=== PATIENT | male | born 1950 | race Caucasian/White ===

== ENCOUNTER 2021-12-24 10:31 | Observation (INO) ==
--- NOTE | 2021-11-16 13:45 | PAT Medication Instructions ---
Medication Instructions Date of Service November 16, 2021 Home Medications rosuvastatin 20 mg tablet 20 mg PO HS sildenafil 20 mg tablet (Revatio) 40 mg PO UD PRN tamsulosin 0.4 mg capsule (Flomax) 0.4 mg PO DAILY venlafaxine 75 mg capsule,extended release 24 hr (Effexor XR) 75 mg PO QAM lisinopril 10 mg-hydrochlorothiazide 12.5 mg tablet 1 tab PO QAM STOP taking 24 hours before surgery sildenafil 20 mg tablet (Revatio) 40 mg PO UD PRN DO NOT take the morning of surgery lisinopril 10 mg-hydrochlorothiazide 12.5 mg tablet 1 tab PO QAM Take morning of surgery With a small sip of water, OTHERWISE NOTHING TO EAT OR DRINK AFTER MIDNIGHT: tamsulosin 0.4 mg capsule (Flomax) 0.4 mg PO DAILY venlafaxine 75 mg capsule,extended release 24 hr (Effexor XR) 75 mg PO QAM Take evening before surgery rosuvastatin 20 mg tablet 20 mg PO HS Other Notes If you have any questions please call us at [phone] or [phone] or [phone] or [phone]
--- NOTE | 2021-11-17 13:53 | Anesthesiology Consultation ---
Date of Service November 17, 2021 Assessment & Plan (1) Encounter for pre-operative examination: Chart Review Chart Review: Acceptable Risk for Surgery (pending preop Covid testing results ) and Patient seen in Pre Admission Testing Upon review of chart- patient is an acceptable candidate for [facility] from anesthesia perspective. Patient is motivated, has good support; pending surgeon's office completes [facility] preop requirements- patient may proceed with outpatient TSA. Per PAT appt on 11/17/21, patient denies any recent travel or large group activities. No known Covid positive exposures or Covid related symptoms. No known Covid infection in the past 90 days. Pt is fully vaccinated for Covid. Preop Covid testing will be done 2-4 days prior to surgery = will await results. Educated on importance of self quarantining, social distancing and wearing mask in public for the patient one week prior to surgery and after Covid testing done Teaching & Discussion Pre-Anesthesia Teaching/Discussion Notes: Instructed NPO after midnight before surgery,except medications with 15 cc of water. Medication instructions provided according to the PAT guidelines. History Surgery Operation Date: 12/24/21 07:00 Proposed Procedures p Left Reverse Total Shoulder Arthroplasty versus - Pablo Madsen DO s Total Shoulder Arthroplasty - Pablo Madsen DO Height/Weight Height: 5 ft 6 in Weight: 77.7 kg Allergies Allergy/AdvReac Type Severity Reaction Status Date / Time No Known Allergies Allergy Verified 11/16/21 11:27 Medications Home Medications Medication Instructions Recorded Confirmed Last Taken rosuvastatin 20 mg tablet 20 mg PO HS 03/16/21 11/16/21 Unknown sildenafil (pulm.hypertension) 20 40 mg PO PRN tab 03/16/21 03/16/21 Unknown mg tablet (Revatio) tamsulosin 0.4 mg capsule (Flomax) 0.4 mg PO DAILY 03/16/21 11/16/21 Unknown venlafaxine 75 mg capsule,extended 75 mg PO QAM 03/16/21 11/16/21 Unknown release 24 hr (Effexor XR) lisinopril 10 1 tab PO QAM 11/16/21 11/16/21 Unknown mg-hydrochlorothiazide 12.5 mg tablet Past Medical History Medical History Anxiety and depression Arthritis HTN (hypertension) Hyperlipidemia Exercise / Class Metabolic Activity II 4-5 Yardwork/Stairs/Walk up hill (one flight of stairs - no chest pain or SOB ) Past Family History Family History Other No family history of adverse response to anesthesia Past Surgical History Surgical History History of carpal tunnel release RT History of colonoscopy History of tooth extraction History of total hip arthroplasty RT S/P carpal tunnel release Past Anesthesia History No Hx of Anesthesia Complications and No Family Hx of Anesthesia Complications History of PONV No Hx of PONV and No Hx of Motion Sickness Social History Smoking Status: Never smoker Hx Alcohol Use: Yes Alcohol type: wine alcohol intake frequency: a few times a month substance use type: does not use Review of Systems Patient denies chest pain, shortness of breath, dyspnea on exertion, reflux, cough, wheezing, palpitations. No hx of seizures, stroke, CT, apnea/snoring. No hx of blood clots or blood transfusions Physical Exam Vital Signs VITALS BP 102/68 P 89 TEMP 97.9 SP02 98% RESP 16 Constitutional no acute distress ENMT Mouth: no TMJ clicking Thyromental Distance: > or= 3.5 Finger Breadths (3.5) Mallampati Class: II Missing molars Neck neck extension not limited Respiratory normal respiratory effort; no respiratory distress Auscultation: lungs clear to auscultation bilaterally; no wheezes Cardiovascular Rate/Rhythm: regular rate and regular rhythm Heart Sounds: no murmur Vessels: no carotid bruit Musculoskeletal Spine: no pain with cervical ROM Extremities: extremities normal to inspection Psychiatric Orientation: alert Lab Results Anesthesia Preop Results Results Anesthesia Widget: WBC 5.10 K/uL (4.8-10.8) 11/17/21 Hgb 13.8 g/dL (14.0-18.0) L 11/17/21 Hct 40.3 % (42-52) L 11/17/21 Plt 239 K/uL (130-400) 11/17/21 Na 139 mmol/L (136-145) 11/17/21 K 3.7 mmol/L (3.5-5.1) 11/17/21 Cl 104 mmol/L (98-107) 11/17/21 CO2 29 mmol/L (21-32) 11/17/21 BUN 24 mg/dl (6-23) H 11/17/21 Creat 0.99 mg/dl (0.6-1.4) 11/17/21 Glucose Level 121 mg/dl (70-99(Fasting)) H 11/17/21 PT 10.5 Seconds (9.0-12.0) 11/17/21 PTT 26.8 Seconds (21.0-31.0) 11/17/21 INR 1.0 (0.9-1.1) 11/17/21 Blood Type A Negative 11/17/21 Antibody Screen NEGATIVE 11/17/21 Testing Electrocardiogram Date: 11/17/21 Sinus rhythm with premature supraventricular complexes at 84bpm. Left anterior fascicular block. Other Testing Chest CT 05/04/2021 = no evidence of sclerosis or lesion of the ribs. No evidence of soft tissue mass. No focal consolidation or pleural effusion. Subsegmental atelectasis versus scarring at the lung bases.
--- NOTE | 2021-12-23 14:41 | History & Physical Report ---
Date of Service December 23, 2021 Assessment & Plan (1) Primary osteoarthritis, left shoulder: We will proceed with a left total shoulder arthroplasty. Postoperatively he will be placed in a sling and discharged home on oral pain medications. He plans to go to outpatient physical therapy upon discharge. History of Present Illness Chief Complaint: Osteoarthritis of the left shoulder. Primary Care Provider: Unknown Unknown Foreign is a pleasant 71-year-old male who is been dealing with chronic worsening osteoarthritis of the left shoulder. I been treating with serial injections. MRI from 2019 shows an intact rotator cuff and severe osteoarthritis After failing years conservative treatment, he has elected to proceed with a left total shoulder arthroplasty. Allergies Allergy/AdvReac Type Severity Reaction Status Date / Time No Known Allergies Allergy Verified 11/16/21 11:27 Home Medications Medication Instructions Recorded Confirmed Type rosuvastatin 20 mg tablet 20 mg PO HS 03/16/21 11/16/21 History sildenafil (pulm.hypertension) 20 40 mg PO PRN tab 03/16/21 03/16/21 History mg tablet (Revatio) tamsulosin 0.4 mg capsule (Flomax) 0.4 mg PO DAILY 03/16/21 11/16/21 History venlafaxine 75 mg capsule,extended 75 mg PO QAM 03/16/21 11/16/21 History release 24 hr (Effexor XR) lisinopril 10 1 tab PO QAM 11/16/21 11/16/21 History mg-hydrochlorothiazide 12.5 mg tablet Past Med/Surg History Medical History Anxiety and depression Arthritis HTN (hypertension) Hyperlipidemia Surgical History History of carpal tunnel release RT History of colonoscopy History of tooth extraction History of total hip arthroplasty RT S/P carpal tunnel release Family History Other No family history of adverse response to anesthesia Social History Smoking Status: Never smoker Second Hand Exposure: No; Hx Alcohol Use: Yes Alcohol type: wine Preferred Language: Latvian Communication Ability: Effective 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 Physical Exam On physical examination, he has about 90 degrees forward elevation 90 degrees of abduction. He does have pain and crepitus throughout. He has 5 out of 5 motor strength throughout. Constitutional WD/WN, vitals as above Eyes PERRL, conjunctivae normal, anicteric sclerae ENMT external ear and nose normal, oropharynx normal Neck trachea midline, no thyromegaly Respiratory normal respiratory effort Cardiovascular RRR, no murmur, no edema Gastrointestinal (Abdomen) normal bowel sounds, soft, nontender, no hepatosplenomegaly Psychiatric A+Ox3, euthymic affect Results & Data Results & Data Laboratory Results . Diagnostic Findings X-rays of the left shoulder do show advanced osteoarthritis with joint space narrowing, osteophyte formation, and xase-cd-dhib articulation. PG Care Time/CCT Total # of Minutes Spent Total Time Spent with Patient: Total time spent is greater than 50% in coordination of care (as documented) at patient's floor/unit and/or counseling patient: Coding Level of Care Code None Diagnoses Primary osteoarthritis, left shoulder M19.012
--- NOTE | 2021-12-24 10:17 | History & Physical Bridge Note ---
Date of Service December 24, 2021 History & Physical Bridge Note I have examined the patient, reviewed the History & Physical and in the interval since the performance of the History & Physical I have noted the following changes of clinical significance: no changes noted
[~2021-12-24 10:31] MED LIST: ACETAMINOPHEN 500 MG TAB PO SCH; ATROPINE SULFATE 0.1 MG/ML 10ML SYR IV PRN; BUPIVACAINE 0.5 % 5 MG/1 ML PF 10ML VIAL ONE; FAMOTIDINE 20 MG TAB PO SCH; GABAPENTIN 300 MG CAP PO SCH; Ketorolac (*for OR use only*) 30 MG, dexAMETHasone 4 MG, KETAMINE HCL (**OR use only) 1... INFIL SCH; LIDOCAINE 2% 2 ML VIAL/AMP(20MG/ML) INFIL ONE; LR 15ML/HR IV SCH; LR 60ML/HR IV SCH; MIDAZOLAM HCL 1 MG/ML 2ML VIAL ONE; ONDANSETRON INJ 2 MG/ML 2 ML VIAL IV PRN; ONDANSETRON INJ 2 MG/ML 2 ML VIAL ONE; PROPOFOL IV EMULSION 10 MG/ML 20 ML VIAL IV ONE; TRANEXAMIC ACID 1,000 MG **IV Intra-op IV SCH; TRANEXAMIC ACID 1,000 MG **IV Pre-op IV SCH; ceFAZolin 2000MG 2,000 MG/15 ML SYR IV SCH; dexAMETHasone 4 MG TAB PO SCH; fentaNYL citrate 100 MCG/2 ML VIAL IV PRN; fentaNYL citrate 100 MCG/2 ML VIAL ONE
[2021-12-24] MEDS ORDERED: ORTHO JOINT ANESTHETIC ONE (10:40)
[2021-12-24] MEDS ORDERED: ROCURONIUM BROMIDE 10 MG/ML 5 ML VIAL IV ONE (11:45)
[2021-12-24] MEDS ORDERED: DEXAMETHASONE SOD INJ 4 MG/ML VIAL ONE (11:45)
[2021-12-24] MEDS ORDERED: oxyCODONE/ACETAMINOPHEN 5mg/325mg TAB PO PRN (12:44)
--- NOTE | 2021-12-24 12:44 | Operative Report ---
PG Post Operative Report Pre & Post Diagnosis Operation Date: 12/24/21 12:00 Pre-Op Diagnosis: Degenerative Joint Disease Left Shoulder with tendinopathy of the long head of the biceps tendon Post-Op Diagnosis: Degenerative Joint Disease Left Shoulder with tendinopathy of the long head of the biceps tendon I identified the patient and participated in the time-out.: Yes Procedure Operation Date: 12/24/21 12:00 Actual Procedures p Left Reverse Total Shoulder Arthroplasty, Uncemented(Left) with open biceps tenodesis as a distinct and separate procedure (modifier 59)- Pablo Madsen DO Surgeon Pablo Madsen DO Digital Forensics Investigator Pablo Walters PAC Estimated Blood Loss 150 Findings Consistent with Post-Op Diagnosis Specimens Left humeral head Complications none Disposition Disposition: Recovery Room Indications Foreign is a pleasant 71-year-old male who is been dealing with chronic increasing left shoulder pain. X-rays and clinical examination were diagnostic for advanced arthritis of the left shoulder. After failing conservative treatment, he elected proceed with a shoulder replacement surgery. Description of Procedure A CPT code modifier 59: The long head of the biceps tendon was enlarged and inflamed consistent with tendinopathy. A tenodesis was opted. This was a separate and distinct portion of the procedure. For these reasons, a CPT code modifier 59 will be added to this case. Implants used: I used a [employer] Comprehensive reverse total shoulder arthroplasty system with a size 11 press fit micro humeral stem, a standard humeral tray and a standard humeral bearing, a 25 mm large augment baseplate with a 6.5 mm central screw and superior and inferior locking screws, and a size 40 mm eccentric glenosphere. Foreign arrived at [facility] for the above procedure. He was seen in the preoperative holding area and the operative extremity was identified and signed. He was given a preoperative antibiotic, TXA, and an interscalene nerve block. He was taken back to the operating room, laid on table in supine position, and put under general anesthesia. He was then put into the beachchair position. The shoulder was then prepped and draped in sterile fashion. A timeout was done and the patient and the operative extremity was properly identified. A deltopectoral approach was used. Dissection was taken down through the fascia and the deltoid was retracted laterally and the conjoined tendon was retracted medially. The anterior shoulder was exposed. The biceps groove was opened up and the biceps tendon was examined extensively. The biceps tendon demonstrated enlargement and inflammatory changes consistent with longstanding inflammation in the context of osteoarthritis and cuff arthropathy. The long head of the biceps tendon was then tenodesed to the upper border of the pectoralis major. This was a separate and distinct portion of the procedure. The subscapularis was then directly released off the lesser tuberosity with a peel technique. The inferior capsule was released and the humeral head was dislocated. A canal finding reamer was sent down the center of the humeral canal. Sequential reaming up to a size 11 reamer was done. Off that reamer, a proximal humeral resection guide was placed. The proximal humerus was resected at 135 of inclination and 25 of retroversion. Osteophytes were then removed and the glenoid was exposed. Time was spent doing a complete capsular and labral release. A [employer] Signature One guide was then attached onto the anterior rim of the glenoid. A 3.2 mm Steinmann pin was then placed in the reverse total shoulder arthroplasty hole. The glenoid baseplate was then reamed. The final size 25 mm large augment baseplate was then impacted in the place. A 6.5 mm central screw was then placed followed by superior and inferior locking screws. A 40 mm eccentric glenosphere was then impacted into place. Surrounding soft tissues were then injected with 100 cc an orthopedic pain control cocktail. The proximal humerus was then exposed. Sequential broaching of the humerus up to a size 11 broach was done. Off that broach a standard humeral tray was trialed. The shoulder was then reduced, brought through a full range of motion, and felt to be stable. The shoulder was then dislocated and the broach was removed. The final size 11 micro press-fit humeral stem was then impacted into place. A standard humeral bearing was then snapped onto a standard humeral tray. The humeral tray was then impacted onto the humeral stem. The shoulder was once again reduced, brought through a full range of motion, and felt to be stable. The subscapularis was then tenodesed back to the lesser tuberosity with transosseous FiberWire sutures and side to side sutures with the arm in 45 of external rotation. A dilute betadyne lavage was then done for 3 minutes. The joint was then irrigated with normal saline solution. Hemostasis was obtained. The interval was closed with 2-0 Vicryl suture. The skin was then closed with 2-0 Vicryl and maverick. A Silverlon dressing was placed and the arm was rested in a regular arm sling. He was then extubated and transferred to a hospital bed. He taken to the postanesthesia care unit in stable condition. He tolerated the procedure well. Pablo Walters PA-C, was present for the entire procedure. He was critical for bharat ent positioning, prepping, draping, retraction exposure, wound closure and application of sterile dressing. I attest to the content of the Intraoperative Record and any orders documented therein. Any exceptions are noted below.
--- NOTE | 2021-12-24 13:15 | XRay Report ---
XR shoulder LT min 2V routine CLINICAL HISTORY: Post shoulder surgery. Status post total shoulder replacement COMPARISON STUDY: No previous studies for comparison. TECHNIQUE: 2 left shoulder views FINDINGS: The patient is status post total shoulder replacement with humeral head and glenoid compone nts. The prosthetic components are in anatomic alignment with no acute abnormality identified. IMPRESSION: 1. Status post total shoulder replacement. ACT 112: Negative or not required by law. Electronically signed by: Wil Constantino M.D. 12/24/2021 1:14 PM
[2021-12-24] MEDS ORDERED: PHENYLEPHRINE 100MCG/ML 5ML SYR ONE (13:27)
[2021-12-24] MEDS: ePHEDrine sulfate 50 MG/ML AMP IV PRN ×3 (13:54→14:06)
[2021-12-24] MEDS ORDERED: ALBUMIN HUMAN 5% 12.5 GM/250 ML VIAL IV ONE (14:20)
[2021-12-24] MEDS ORDERED: VASOPRESSIN 20 UNIT/ML VIAL ONE (14:20)
--- NOTE | 2021-12-24 15:43 | Anesthesiology Progress Note ---
Date of Service December 24, 2021 Anesthesia Post Procedure Vital Signs Vital Signs: Temp Pulse Pulse Resp BP Pulse Ox 12/24/21 15:30 88 14 98/60 L 94 12/24/21 15:20 82 13 106/65 95 12/24/21 15:10 88 17 106/63 97 12/24/21 15:00 36.2 C L 82 14 97/60 L 95 12/24/21 14:50 86 14 92/57 L 96 12/24/21 14:45 89 13 98/67 L 98 12/24/21 14:40 86 12 90/55 L 97 12/24/21 14:35 87 12 87/53 L 97 12/24/21 14:30 85 14 86/52 L 98 12/24/21 14:25 82 12 110/74 97 12/24/21 14:20 79 19 78/54 L 97 12/24/21 14:10 82 15 85/53 L 97 12/24/21 14:00 77 20 85/53 L 93 12/24/21 13:50 78 16 86/56 L 96 12/24/21 13:40 81 13 85/51 L 96 12/24/21 13:30 82 17 89/51 L 99 12/24/21 13:20 68 16 76/46 L 97 12/24/21 13:10 83 13 114/76 98 12/24/21 13:03 36.1 C L 84 12 128/96 95 12/24/21 10:48 36.9 C 96 H 18 134/98 99 Transfer of Care Handoff Completed per policy Notes Mental Status: alert / awake / arousable and participated in evaluation Patient Amnestic to Procedure: Yes Nausea / Vomiting: adequately controlled Pain: adequately controlled Airway Patency, RR, SpO2: stable & adequate BP & HR: see Notes below Hydration State: stable & adequate Anesthetic Complications: no major complications apparent and Pt Satisfied with anesthetic care Notes: Patient had mild hypotension intraoperatively that was treated with vasoactive medications. In recovery, he again had decreased BP with SBP's in 80's despite fluid bolus and remaining supine. Denied any chest pain/pressure, SOB, dizziness, vision changes, pain, N/V. He was awake and conversant. Moved all extremities. HR 80's, NSR. SpO2 mid to high 90's in minimal supplemental oxygen via NC. Along with LR bolus, had PACU nurse administer several doses of ephedrine with minimal change in BP. Ordered 250ml 5% albumin and I personally gave a total of 8 units of vasopressin over 20 min with BP's responding to high 90's and then low 100's although patient still supine. After discussion with patient and his (via cell), felt it was best to suggest he be admitted overnight for observation so that his BP could correct and minimize chance of him getting up and having a fall. Of note, patient took his morning dose of HCTZ/lisinopril and I felt his hypotension was likely lisinopril induced. Patient agreed with plan and surgical team made aware. Plan was for them to admit patient overnight and discharge tomorrow once his blood pressure had normalized and he was further out from the general anesthetic. All questions answered.
[2021-12-24] MEDS ORDERED: oxyCODONE HCL IR 5 MG TAB (IMMEDIATE RELEASE) PO PRN (16:17)
[2021-12-24] MEDS ORDERED: METOCLOPRAMIDE HCL INJ 5 MG/ML 2 ML VIAL IV PRN (16:17)
[2021-12-24] MEDS ORDERED: ONDANSETRON INJ 2 MG/ML 2 ML VIAL IV PRN (16:17)
[2021-12-24] MEDS ORDERED: HYDROmorphone INJ 0.5 MG/0.5 ML SYR IV PRN (16:17)
[2021-12-24] MEDS: SODIUM CHLORIDE 0.9% 1000ML 1,000 ML IV SCH (16:17)
[2021-12-24] MEDS ORDERED: bisacodyL 10 MG SUPP PR PRN (16:17)
[2021-12-24] MEDS ORDERED: MAGNESIUM HYDROXIDE SUSP 30 ML UDC PO PRN (16:17)
[2021-12-24] MEDS ORDERED: NALOXONE HCL 0.4 MG/1 ML VIAL/CARP IV PRN (16:17)
--- NOTE | 2021-12-24 16:44 | Hospitalist Consultation ---
Date of Consultation December 24, 2021 Assessment & Plan (1) Hypotension: Patient has postoperative hypotension was asymptomatic at this time. He is ordered saline at 100 an hour. The patient has no systemic complaints or problems such as chest pain shortness of breath. There is no obvious signs of excessive bleeding For patient's hypertension we will hold the lisinopril hydrochlorothiazide in the postoperative period restarting this on 12/26/2021 if the patient still remains in the hospital. and we will hold off on his Flomax therapy at this time also.. When checking hemoglobin in the morning in case his potential and is from hypovolemia from blood loss (2) Status post reverse total replacement of left shoulder: Patient had a satisfactory versus reverse shoulder replacement by Dr. Madsen in December 24 (3) Anxiety and depression: Patient maintains his Effexor 75 twice daily History of Present Illness Attending Physician: Pablo Madsen DO History of Present Illness 71-year-old male who had a left reverse total total shoulder arthroplasty on 12/24/[address] Madsen patient has medical problems including hypertension dyslipidemia depression and BPH. He takes lisinopril hydrochlorothiazide Crestor Effexor and Flomax respectively. We are consulted for postoperative medical management Allergies Allergy/AdvReac Type Severity Reaction Status Date / Time No Known Allergies Allergy Verified 12/24/21 10:45 Home Medications Medication Instructions Recorded Confirmed Type rosuvastatin 20 mg tablet 20 mg PO HS 03/16/21 12/24/21 History sildenafil (pulm.hypertension) 20 40 mg PO PRN tab 03/16/21 03/16/21 History mg tablet (Revatio) tamsulosin 0.4 mg capsule (Flomax) 0.4 mg PO DAILY 03/16/21 12/24/21 History venlafaxine 75 mg capsule,extended 75 mg PO QAM 03/16/21 12/24/21 History release 24 hr (Effexor XR) lisinopril 10 1 tab PO QAM 11/16/21 12/24/21 History mg-hydrochlorothiazide 12.5 mg tablet oxycodone-acetaminophen 5 mg-325 1 tab PO Q6H PRN #30 tab 12/24/21 Rx mg tablet Patient History Medical History (Updated 12/24/21 @ 17:11 by Nemesio Ohara MD) Anxiety and depression Arthritis HTN (hypertension) Hyperlipidemia Surgical History (Updated 12/24/21 @ 11:18 by Pablo Madsen DO) History of carpal tunnel release RT History of colonoscopy History of tooth extraction History of total hip arthroplasty RT S/P carpal tunnel release Family History Other No family history of adverse response to anesthesia Social History Smoking Status: Never smoker Second Hand Exposure: No; Hx Alcohol Use: Yes Alcohol type: wine Preferred Language: Azeri Communication Ability: Effective Tallow Maker Required: No Beliefs That Will Affect Care: None marital status: Current Living Situation: Spouse Feels Safe at Home: Yes Safety Concerns: Feels Safe At This Time Assistive Devices: Glasses Review of Systems Review of Systems: Mild distress and fatigue no headache, no visual changes no speech or swallowing issues no chest pain, pressure or palpitations no shortness of breath, cough or wheezes no abdominal pain, nausea or vomiting, diarrhea or constipation no dysuria, hematuria or frequency no focal joint pain or swelling no back pain, CVA tenderness or radicular pain no bruising, bleeding or rashes no focal signs of weakness is of altered sensation has remnant of his nerve block on his left hand and however is easily movable and he can AB duct his thumb no complaints of anxiety or depression.. Physical Exam Physical Exam: The patient appeared well nourished and normally developed. His pain was well controlled Vital signs as documented. Head exam is normocephalic atraumatic Neck is without JVD, thyromegaly, or carotid bruits. Lungs are clear to auscultation, no focal loss of breath sounds Cardiac exam, Rhythm is regular.. No murmurs, rubs or gallops. Abdominal exam reveals normal bowel sounds, soft non tender, no masses Left shoulder has a sling in place the wound is dressed ice bag is in place Neurologic exam is alert and oriented, no focal loss of strength is of some residual numbness from axillary nerve block Skin is without bruises or rashes but the operative site could not be visualized due to dressing in place Psychologically is without concerns for anxiety or depression.. Results & Data Results & Data ([facility]) Vital Signs (Past 12 Hours) Vital Signs Temp Pulse Pulse Resp BP Pulse Ox 12/24/21 16:27 98.1 F 105 H 20 105/94 94 12/24/21 16:00 98 H 13 94/55 L 94 12/24/21 15:50 97 H 14 97/63 L 95 12/24/21 15:40 89 18 92/58 L 95 12/24/21 15:30 88 14 98/60 L 94 12/24/21 15:20 82 13 106/65 95 12/24/21 15:10 88 17 106/63 97 12/24/21 15:00 97.2 F L 82 14 97/60 L 95 12/24/21 14:50 86 14 92/57 L 96 12/24/21 14:45 89 13 98/67 L 98 12/24/21 14:40 86 12 90/55 L 97 12/24/21 14:35 87 12 87/53 L 97 12/24/21 14:30 85 14 86/52 L 98 12/24/21 14:25 82 12 110/74 97 12/24/21 14:20 79 19 78/54 L 97 12/24/21 14:10 82 15 85/53 L 97 12/24/21 14:00 77 20 85/53 L 93 12/24/21 13:50 78 16 86/56 L 96 12/24/21 13:40 81 13 85/51 L 96 12/24/21 13:30 82 17 89/51 L 99 12/24/21 13:20 68 16 76/46 L 97 12/24/21 13:10 83 13 114/76 98 12/24/21 13:03 97.0 F L 84 12 128/96 95 12/24/21 10:48 98.4 F 96 H 18 134/98 99 Diagnostic Findings Shoulder X-Ray 12/24/21 12:44 XR shoulder LT min 2V routine CLINICAL HISTORY: Post shoulder surgery. Status post total shoulder replacement COMPARISON STUDY: No previous studies for comparison. TECHNIQUE: 2 left shoulder views FINDINGS: The patient is status post total shoulder replacement with humeral head and glenoid components. The prosthetic components are in anatomic alignment with no acute abnormality identified. IMPRESSION: 1. Status post total shoulder replacement. ACT 112: Negative or not required by law. Electronically signed by: Wil Constantino M.D. 12/24/2021 1:14 PM PG Care Time/CCT Total # of Minutes Spent Total Time Spent with Patient: Total time spent is greater than 50% in coordination of care (as documented) at patient's floor/unit and/or counseling patient: Coding Level of Care Code 51564 Inpt Consult Level 3 Diagnoses Status post reverse total replacement of left shoulder Z96.612 Anxiety and depression F41.9; F32.A Hypotension I95.9
[2021-12-24] MEDS: KETOROLAC TROMETHAMINE 15 MG/ML VIAL IV SCH ×2 (18:08→23:56)
[2021-12-24] MEDS: ceFAZolin 2000MG 2,000 MG/15 ML SYR IV SCH (20:58)
[2021-12-24] MEDS ORDERED: SENNA 8.6 MG TAB PO SCH (21:00)
[2021-12-24] MEDS: ACETAMINOPHEN 500 MG TAB PO SCH (21:00)
[2021-12-24] MEDS ORDERED: ROSUVASTATIN CALCIUM 20 MG TAB PO SCH (21:00)
[2021-12-24] MEDS: ASPIRIN 81 MG ECTAB PO SCH (21:01)
[2021-12-24] MEDS: DOCUSATE SODIUM 100 MG CAP PO SCH (21:01)
[2021-12-25] MEDS: SODIUM CHLORIDE 0.9% 1000ML 1,000 ML IV SCH (03:09)
[2021-12-25] MEDS: ceFAZolin 2000MG 2,000 MG/15 ML SYR IV SCH (05:37)
[2021-12-25] MEDS: ACETAMINOPHEN 500 MG TAB PO SCH (05:37)
[2021-12-25] MEDS: KETOROLAC TROMETHAMINE 15 MG/ML VIAL IV SCH (05:38)
[2021-12-25 06:27] LABS: Hematocrit (blood only) 34.4 % (42-52); Hemoglobin 11.6 g/dL (14.0-18.0); Mean Corpuscular Hgb Conc 33.7 g/dL (32-36); Mean Corpuscular Volume 94.8 fL (80-100); Mean Platelet Volume 9.8 fL (7.4-10.4); Platelet Count 208 K/uL (130-400); RDW Coefficient of Variation 12.9 % (11.5-14.5); RDW Standard Deviation 44.8 fL (36.4-46.3); Red Blood Count 3.63 M/uL (4.7-6.1); White Blood Count 12.83 K/uL (4.8-10.8)
[2021-12-25 06:49] LABS: BUN Creatinine Ratio 19.7 (10-20); Calcium 8.1 mg/dl (8.5-10.1); Creatinine Clr Calc Pharmacy 52.3 ml/min; Est GFR (African American) 72.3 ml/min; Est GFR (Non-African American) 62.4 ml/min; Potassium 3.8 mmol/L (3.5-5.1)
--- NOTE | 2021-12-25 07:10 | Orthopedic Progress Note ---
Date of Service December 25, 2021 Assessment & Plan (1) Status post reverse total replacement of left shoulder: Overall is doing very well. He does not seem to be symptomatic with the hypotension. His blood pressure is still running a little bit low but it is higher than it was postoperatively. We have held his lisinopril. He will be seen by physical therapy today for ambulation and range of motion exercises. If he does well with physical therapy, and he is asymptomatic, he can be discharged home. I do want him to hold his lisinopril for the next 3 days. He will follow-up with orthopedics in 2 weeks. Jessica Carrasquillo was seen and examined at bedside this morning. Overall is doing fairly well. He was admitted last night for postoperative hypotension. He says he feels fine. He has been up and using the bathroom. He has no complaints. Review of Systems All systems reviewed & are unremarkable except as noted in HPI & below. Physical Exam On physical examination of the left shoulder, the dressing is clean and dry. His radial, median, and ulnar nerves are checked intact at his wrist. He still is a little bit of numbness in his thumb. He is wearing his sling as instructed. . Results & Data Results & Data Laboratory Results . Diagnostic Findings Postoperative x-rays of the left shoulder show the prosthesis to be in anatomic alignment without any evidence of fracture, desiccation, or loosening . PG Care Time/CCT Total # of Minutes Spent Total Time Spent with Patient: Total time spent is greater than 50% in coordination of care (as documented) at patient's floor/unit and/or counseling patient: Coding Level of Care Code 13964 Post Operative Follow-Up Diagnoses Status post reverse total replacement of left shoulder Z96.612
--- NOTE | 2021-12-25 07:11 | Discharge Summary ---
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 I been treating with serial injections. MRI from 2019 shows an intact rotator cuff and severe osteoarthritis After failing years conservative treatment, he has elected to proceed with a left total shoulder arthroplasty. Admission Exam (Per Admitting) On physical examination, he has about 90 degrees forward elevation 90 degrees of abduction. He does have pain and crepitus throughout. He has 5 out of 5 motor strength throughout. Principal Diagnosis Same as "Discharge Diagnosis" noted below under Discharge Instructions. Discharge Exam On physical examination of the left shoulder, the dressing is clean and dry. His radial, median, and ulnar nerves are checked intact at his wrist. He still is a little bit of numbness in his thumb. He is wearing his sling as instructed . . Discharge Data Consultations 12/24/21 16:17 Consult Hospitalist Routine Procedures Performed Operation Date: 12/24/21 12:00 Actual Procedures p Left Reverse Total Shoulder Arthroplasty, Uncemented(Left) - Pablo Madsen DO Ordered Studies 12/24/21 05:00 US - OR guided needle placemen Routine Hospital Course (1) Status post reverse total replacement of left shoulder: On December 24, 2021 Foreign arrived at [facility] and underwent a left reverse shoulder arthroplasty without complication. He had a general anesthetic and a left interscalene nerve block. Postoperatively he was supposed to be in our outpatient joint protocol. Unfortunately, he was having post operative hypotension. We felt it was safest to keep him overnight. On postop day #1 he was still little bit hypotensive but he was completely asymptomatic. He was able to participate well with physical therapy doing ambulation and range of motion exercises. We held his lisinopril for a few days. He was discharged home. He will follow-up with orthopedics in 2 weeks. PG Care Time/CCT Total # of Minutes Spent Total Time Spent with Patient: Total time spent is greater than 50% in coordination of care (as documented) at patient's floor/unit and/or counseling patient: Discharge Plan Discharge Items Patient Disposition: Home - Home Health Services Reason For Visit: DD Left Shoulder Discharge Diagnosis: Left shoulder replacement Activity: Per Instructions section Non-emergency contact: Surgeon Call non-emergency contact if: your wound has increased redness and your wound has increased drainage Follow-up/Referrals: Aletha Abarca M.D. [Primary Care Provider] - Diet: Regular Addtl Attending Provider Instructions: Activity and Therapy Recommendations: * If you are using [facility] then therapy will be provided at your home until they feel you have accomplished all of your goals. * If you are using [facility] then Physical Therapy will be provided until they feel you are ready to start Outpatient Physical Therapy. * If you are not using home therapy then Outpatient Physical Therapy should start about 3-5 days from your day of surgery. Therapy will last about 8-12 weeks * Wear your sling for 3 weeks, unless otherwise instructed. You may remove your sling to shower and to dress, but otherwise, you should be in your sling at all times, including while sleeping * The shoulder replacement is very stable and you can use your hand while in the sling * You were shown a series of exercises in the hospital. Do these exercises daily including the exercises you were shown in physical therapy. Medications: * Narcotic You will likely be sent home from the hospital with a prescription for the narcotic pain medication that worked best throughout your stay. * Other medications may be prescribed for specific circumstances. If you have any questions, please call the office at . * Resume previous home medications unless otherwise instructed Dressing Care: Leave the Silverlon dressing in place for 7 days. After 7 days you may remove the dressing. If the incision is not draining then you may leave the maverick open to air. If there is a little bit of drainage or if the maverick are getting stuck on your clothing then cover the incision with a dry dressing. The maverick will be removed at your 2 week follow-up appointment. Showering: You may shower with the Silverlon dressing in place. Do not let the shower spray hit the dressing directly. Pat the Silverlon dressing dry. If the dressing becomes wet underneath, then simply remove the dressing. Keep the incision dry until you are 7 days out from the day of surgery. After 7 days you may remove the Silverlon dressing and shower with the maverick exposed. Let soapy water run over the maverick and pat them dry. Do not scrub or soak the incision. Things To Watch For: * Drainage from the incision site that occurs more than one week after your surgery. * Increased redness at the incision site. * Fever above 102 degrees Fahrenheit. * Unusual chest pain or shortness of breath. * Call [facility] at with any of the above problems Follow-Up Visit: Follow-up with Dr. Madsen's PA (Pablo Walters) 2-3 weeks after your day of surgery. He will remove your maverick and answer any questions. If you have any additional questions or concerns, Dr Madsen is usually in the office at the same time and will be available An appointment was probably scheduled when you signed-up for surgery in the office. If you have any questions call More detailed instructions as well as Frequently Asked Questions were provided in a folder by our office when you signed-up for surgery. Please review these instructions when you get home. If you have any further questions or concerns, please feel free to call the office at [phone] Pending Studies at Discharge: No Stand-Alone Forms: My [facility] [address] [facility] Medications and DC Order Prescriptions: New oxycodone-acetaminophen 5-325 mg tablet 1 tab PO Q6H PRN (Reason: pain) Qty: 30 RF: 0 Continued venlafaxine [Effexor XR] 75 mg capsule,extended release 24hr 75 mg PO QAM RF: 0 rosuvastatin 20 mg tablet 20 mg PO HS RF: 0 tamsulosin [Flomax] 0.4 mg capsule 0.4 mg PO DAILY RF: 0 sildenafil (pulm.hypertension) [Revatio] 20 mg tablet 40 mg PO PRN (Reason: Erectile Dysfunction) RF: 0 lisinopril-hydrochlorothiazide 10-12.5 mg Tablet 1 tab PO QAM Qty: 0 RF: 0 Discharge Orders: Discharge Order (Routine); Ordered 12/25/21 Ordered By: Pablo Madsen Admission Data Admit Date/Time: 12/24/21 15:28 Attending Provider: Pablo Madsen Admit Provider: Pablo Madsen Primary Care Provider: Aletha Abarca Other Providers: Al Hill ; Samara Hardy ; Ryan Mora Robert R. ; Nemesio Ohara ; Angel Barraza ; Artis Herr ; Lester Hua ; Kay Flowers ; Sandy Rust ; Eddie Ramos ; Teresa Quintero ; Bob Rocha ; James Ramos ; Margie Joseph ; Erica Rosenbaum ; Fred Albright ; Samara Yung ; Bernardo Mohr ; Surjit France ; Darryl Fields ; Ryan Delgado ; Rosaura Germain ; Tamra Wood ; Sony Florian ; Sara Gann ; Esteban Edwards ; Negrito Valiente ; Rosetta Crooks ; Mae Martinez ; Wesly Pérez.
[2021-12-25] MEDS ORDERED: dexAMETHasone 4 MG TAB PO SCH (08:00)
[2021-12-25] MEDS ORDERED: TAMSULOSIN HCL 0.4 MG CAP PO SCH ×2 (09:00→21:00)
[2021-12-25] MEDS ORDERED: VENLAFAXINE HCL XR 75 MG CAPXR PO SCH (09:00)
[2021-12-25] MEDS ORDERED: LISINOPRIL/HCTZ 10/12.5MG TAB PO SCH (09:00)
[2021-12-25] MEDS ORDERED: MULTIVITAMIN TAB PO SCH (09:00)
[2021-12-25] MEDS: ASPIRIN 81 MG ECTAB PO SCH (09:03)
[2021-12-25] MEDS: DOCUSATE SODIUM 100 MG CAP PO SCH (09:03)
[2021-12-26] MEDS ORDERED: LISINOPRIL/HCTZ 10/12.5MG TAB PO SCH (09:00)
== END 2021-12-25 11:19 | disposition home health service (06) ==
LOC: ASU 10:31 → 3N 10:31